=== PATIENT | male | born 1995 | race Caucasian/White ===

== ENCOUNTER 2020-04-06 16:39 | Outpatient (REF) | payer OTHER, SELFPAY | END 2020-04-06 16:40 | disposition home or self-care (01) | LOC: HO.LNP 16:39 | PROVIDERS: Visit Provider Physician Assistant | DX: Z20.822 Contact with and (suspected) exposure to COVID-19 (principal); J06.9 Acute upper respiratory infection, unspecified | CPT/HCPCS: 36415; U0003; U0005 ==

== ENCOUNTER 2020-05-25 09:35 | Outpatient (REF) | payer OTHER, SELFPAY ==
[2020-05-25 11:08] LABS: MANUAL DIFF FLAG NO
[2020-05-25 11:21] LABS: Basophils Absolute Auto 0.1 X10*3/uL (0.0-0.2); Basophils Percent Auto 0.6 % (0-2); Eosinophils Absolute Auto 0.1 X10*3/uL (0.0-0.4); Eosinophils Percent Auto 0.9 % (0-4); Hematocrit 49.8 % (42-52); Hemoglobin 17.1 g/dl (14.0-18.0); Imm Gran Abs Auto 0.04 X10*3/uL (0.00-0.03); Imm Gran Pct Auto 0.5 % (0.0-0.4); Lymphocytes Absolute Auto 2.2 X10*3/uL (1.2-4.9); Lymphocytes Percent Auto 27.3 % (20-40); Mean Corpuscular HGB Conc 34.3 g/dl (31.0-36.0); Mean Corpuscular Hemoglobin 29.8 pg (27.0-33.0); Mean Corpuscular Volume 86.8 fL (80-98); Mean Platelet Volume 9.9 fL (9.4-12.4); Monocytes Absolute Auto 0.8 X10*3/uL (0.1-1.2); Monocytes Percent Auto 10.4 % (2-11); Neutrophils Absolute Auto 4.8 X10*3/uL (2.0-8.3); Neutrophils Percent Auto 60.3 % (45-73); Platelet Count 332 X10*3/uL (160-400); Red Blood Count 5.74 X10*6/uL (4.60-5.80); Red Cell Distribution Width 12.3 % (11.0-16.0); White Blood Count 7.9 X10*3/uL (4.8-10.8)
[2020-05-25 11:52] LABS: Alanine Aminotransferase 20 U/L (0-40); Albumin Level 5.1 g/dL (3.5-5.0); Alkaline Phosphatase 57 U/L (39-117); Anion Gap 16 (12-20); Aspartate Amino Transferase 15 U/L (5-37); Blood Urea Nitrogen 10 mg/dL (9-16); Calcium 10.2 mg/dL (8.4-10.2); Carbon Dioxide 27 mmol/L (22-29); Chloride 103 mmol/L (96-108); Cholesterol 240 mg/dL; Estimated Glomerular Filt Rate > 60; Glucose Fasting 92 mg/dL (60-99); HDL Cholesterol 35 mg/dL; LDL Cholesterol Calculated 155 mg/dl; Potassium 4.2 mmol/L (3.3-5.1); Sodium 142 mmol/L (135-145); Total Protein 7.4 g/dL (6.5-8.0); Triglycerides 252 mg/dL
[2020-05-25 11:59] LABS: TSH reflex Free T4 1.76 uIU/mL (0.32-4.0)
== END 2020-05-25 09:36 | disposition home or self-care (01) ==
LOC: HO.HMGCLDS 09:35
PROVIDERS: PCP Nurse Practitioner Family; Visit Provider Nurse Practitioner Family
DX: I10 Essential (primary) hypertension (principal); R00.0 Tachycardia, unspecified
CPT/HCPCS: 36415; 80053; 80061; 84443; 85025

== ENCOUNTER → 2020-08-23 13:49 | Outpatient (BNVA) | payer OTHER, SELFPAY | PROVIDERS: PCP Nurse Practitioner Family; Referring Provider Nurse Practitioner Family; Visit Provider Internal Medicine | DX: R00.0 Tachycardia, unspecified (principal); R00.2 Palpitations; I10 Essential (primary) hypertension | CPT/HCPCS: 93005; 99202 ==

== ENCOUNTER → 2020-09-27 13:12 | Outpatient (REF) | payer OTHER, SELFPAY ==
--- NOTE | 2020-09-27 13:17 | CA_ITS ---
Transthoracic Echocardiogram Patient (Last, First, Middle): Wesley Rain L Gender: Male Date of : 1995 Age: 25 Procedure Date: 09/27/2020 Procedure Type: Transthoracic Echocardiogram Location: OP Height: 177.8 cm Weight: 81.65 kg BSA: 2.00 m2 Heart Rate: bpm BP: 112 / 80 mmHg Box Tender: Petra MD: Eugene Rosa MD Symptoms: R00.2 - Palpitations Study Quality: Good ECG Rhythm: Sinus tachycardia Conclusions: - The left ventricular systolic function is normal. The visually estimated ejection fraction is between 60-65%. - No obvious valvular pathology seen on this study. Findings Left Ventricle Normal left ventricular cavity size. There is normal left ventricular wall thickness. The left ventricular systolic function is normal. The visually estimated ejection fraction is between 60-65%. There is no evidence of regional wall motion abnormalities. Diastolic function is normal for age. Right Ventricle Normal right ventricular cavity size and systolic function. Atria Both atria are normal in size. Aortic Valve There is a normal trileaflet aortic valve. There is no aortic valve stenosis. There is no aortic valve regurgitation. Mitral Valve The mitral valve appears normal. There is trace mitral valve regurgitation. There is no mitral valve stenosis. Pulmonic Valve The pulmonic valve was not well visualized. There is trace pulmonic valve regurgitation. Tricuspid Valve Normal tricuspid valve structure. There is no tricuspid valve regurgitation. Tricuspid regurgitation envelope is inadequate for calculation of right ventricular systolic pressure. Great Vessels The aortic annulus, sinuses of valsalva, and asc aorta are normal in size. Venous The inferior vena cava is normal in size and collapses greater than 50% with inspiration. Pericardium/Pleural There is no evidence of pericardial effusion. Prior Study Comparison No prior study available for comparison. Recommendations, Care & Conclusions No obvious valvular pathology seen on this study. Measurements 2D Linear Measurements RVIDd: 2.31 RVIDd Index: 1.16 IVSd: 1.05 0.6-0.9/0.6-1.0 cm LVIDd: 4.09 3.9-5.3/4.2-5.9 cm LVIDd Index: 2.05 2.4-3.2/2.2-3.1 cm/m2 LVIDs: 3.01 2.0-3.6 cm LVPWd: 1.25 0.7-1.1 cm Ao Root: 2.80 2.1-3.5 cm LA Diam: 2.60 2.7-3.8/3.0-4.0 cm LAIDs Index: 1.30 1.5-2.3 cm/m2 LV Mass: 200.20 67-162/88-224 g LV Mass Index: 100.10 43-95/49-115 g/m2 LVOT Diam: 2.30 3.0+(-)1.3 cm 2D Systolic Function EF 4C: 61.10 >55% EF 2C: 63.40 >55% EF BiP: 62.70 >55% Mitral Valve E'Lateral: 18.00 E'Medial: 9.90 Aortic Valve AoV Pk Chacorta: 1.26 AoV Mn Chacorta: 0.87 AoV VTI: 0.21 AoV Pk Grad: 6.00 Aov Mn Grad: 3.00 AKASH Cont.VTI: 3.09 LVOT LVOT Pk Chacorta: 1.00 LVOT Mn Chacorta: 0.60 LVOT VTI: 0.16 LVOT Pk Grad: 4.00 LVOT Mn Grad: 2.00 LVOT Diam: 2.30 LVOT Area: 4.15 Diastolic Function E'Medial: 9.90 E' Laterial: 18.00 Tricuspid Valve RA Press: 3.00 Great Vessels Aorta Ao Root-2D: 2.80 2.0-3.7 cm Ao Asc: 2.80 2.1-3.4 cm Ao Arch: 2.50 Updated in Other Vendor System with Status of Final Eugene Rosa MD electronically signed on 09/29/2020 1:52:44 PM with status of Final
--- NOTE | 2020-09-27 13:17 | ECG_ITS ---
Hook-up date: 2020-09-27 14:07:00 Duration: 42:47:00 Test Indications: PALPITATIONS Medications: 665470 QRS complexes * Ventricular ectopics which represent % of total QRS comp. * Supraventricular ectopics which represent % of total QRS comp. * Paced QRS complexs which represent % of total QRS comp. VENTRICULAR ECTOPY * Isolated * Bigeminal Cycles * Couplets * Runs * Beats in Runs * Beats LONGEST at * BPM at :: -- * Beats FASTEST at * BPM at :: -- SUPRAVENTRICULAR ECTOPY * Isolated * Couplets * Runs * Beats in Runs * Beats LONGEST at * BPM at :: -- * Beats FASTEST at * BPM at :: -- HEART RATES 47 MIN at 05:21:54 2020-09-28 89 AVG 146 MAX at 14:33:30 2020-09-27 LONGEST RR 1.4880 secs at 02:13:34 2020-09-28 S-T LEVELS Channel 1 - 128 mm at 14:07:00 2020-09-27 - 128 mm at 14:07:00 2020-09-27 Channel 2 - 128 mm at 14:07:00 2020-09-27 - 128 mm at 14:07:00 2020-09-27 Channel 3 - 128 mm at 03:32:61 -- - 128 mm at 03:32:61 Underlying rhythm is sinus; Average ventricular rate 89/min; range 47-146/min; About 30% of the time, ventricular rate >100/min- sinus tachycardia; Otherwise, no significant arrhythmias; Patient did not report any symptoms in the diary Referred By: Candelaria Hernandez Overread By: CANDELARIA HERNANDEZ
== END ==
LOC: HO.CARD 13:12
PROVIDERS: PCP Nurse Practitioner Family; Visit Provider Internal Medicine
DX: R00.2 Palpitations (principal)
CPT/HCPCS: 93225; 93226; 93306

== ENCOUNTER → 2020-10-18 14:29 | Outpatient (BNVA) | payer OTHER, SELFPAY | PROVIDERS: PCP Nurse Practitioner Family; Referring Provider Nurse Practitioner Family; Visit Provider Internal Medicine | DX: R00.0 Tachycardia, unspecified (principal); R00.2 Palpitations; I10 Essential (primary) hypertension; R07.9 Chest pain, unspecified; Q54.9 Hypospadias, unspecified; Z79.899 Other long term (current) drug therapy | CPT/HCPCS: 93005; 99212 ==

== ENCOUNTER 2021-02-14 19:33 | Emergency (ER) | payer OTHER, SELFPAY ==
--- NOTE | ~2021-02-14 | XR_ITS ---
EXAMINATION: XR CHEST CLINICAL INFORMATION: Chest pain COMPARISON: None TECHNIQUE: Frontal view of the chest was obtained. FINDINGS: Cardiac silhouette is normal in size. Lungs are well aerated. There is no lobar consolidation. No pleural effusion or pneumothorax. No acute osseous abnormality. XR/XR chest 1V IMPRESSION: No acute pulmonary pathology.
[2021-02-14 19:49] VITALS: BP 153/109; PULSE 105; RESP 18; TEMP 37.2; O2SAT 98; BMI 25.8
[2021-02-14 21:41] LABS: MANUAL DIFF FLAG NO
[2021-02-14 21:42] LABS: Basophils Absolute Auto 0.1 X10*3/uL (0.0-0.2); Basophils Percent Auto 0.6 % (0-2); Eosinophils Absolute Auto 0.1 X10*3/uL (0.0-0.4); Eosinophils Percent Auto 1.1 % (0-4); Hematocrit 49.9 % (42.0-52.0); Hemoglobin 17.8 g/dl (14.0-18.0); Imm Gran Abs Auto 0.03 X10*3/uL (0.00-0.03); Imm Gran Pct Auto 0.3 % (0.0-0.4); Lymphocytes Absolute Auto 3.2 X10*3/uL (1.2-4.9); Lymphocytes Percent Auto 34.7 % (20-40); Mean Corpuscular HGB Conc 35.7 g/dl (31.0-36.0); Mean Corpuscular Volume 84.1 fL (80.0-98.0); Mean Platelet Volume 9.3 fL (9.4-12.4); Monocytes Absolute Auto 0.9 X10*3/uL (0.1-1.2); Monocytes Percent Auto 9.1 % (2-11); Neutrophils Absolute Auto 5.1 x10*3/uL (2.0-8.3); Neutrophils Percent Auto 54.2 % (45-73); Platelet Count 297 X10*3/uL (160-400); Red Blood Count 5.93 X10*6/uL (4.60-5.80); Red Cell Distribution Width 11.9 % (11.0-16.0); White Blood Count 9.4 X10*3/uL (4.8-10.8)
[2021-02-14 22:01] LABS: Troponin-I High Sensitivity < 3.5 ng/L (<3.5-35.0)
[2021-02-14 22:03] LABS: Anion Gap 13 (12-20); Blood Urea Nitrogen 11 mg/dL (9-16); Calcium 10.7 mg/dL (8.4-10.2); Carbon Dioxide 29 mmol/L (22-29); Chloride 103 mmol/L (96-108); Creatinine Clr Calc Pharmacy 103.1; Estimated Glomerular Filt Rate > 60; Glucose Random 86 mg/dL (60-115); Potassium 4.7 mmol/L (3.3-5.1); Sodium 140 mmol/L (135-145)
--- NOTE | 2021-02-15 07:50 | ECG_ITS ---
Test Reason : CHEST PAIN Blood Pressure : / mmHG Vent. Rate : 100 BPM Atrial Rate : 100 BPM P-R Int : 128 ms QRS Dur : 076 ms QT Int : 318 ms P-R-T Axes : 074 086 044 degrees QTc Int : 410 ms Normal sinus rhythm Nonspecific ST abnormality No previous ECGs available Referred By: Manuel Espinal Electronically Signed By:STEFANI LAYNE MD
== END 2021-02-15 00:35 | disposition left against medical advice (07) ==
PROVIDERS: Emergency Provider Emergency Medicine; PCP Nurse Practitioner Family
DX: R07.9 Chest pain, unspecified (principal)
CPT/HCPCS: 36415; 71045; 80048; 84484; 85025; 93005; 99282; 99283

== ENCOUNTER 2021-06-06 09:22 | Outpatient (REF) | payer OTHER, SELFPAY ==
--- NOTE | ~2021-06-06 | XR_ITS ---
EXAMINATION: XR LUMBOSACRAL SPINE CLINICAL INFORMATION: Radiculopathy. COMPARISON: None TECHNIQUE: Three views of the lumbosacral spine. FINDINGS: The vertebral bodies and posterior elements are normal. The disc spaces are preserved and the vertebral alignment is normal. The paraspinal soft tissues are normal. XR/XR lumbar spine 2-3V IMPRESSION: Unremarkable lumbar spine examination.
[2021-06-06 11:39] LABS: Appearance Urine CLEAR; Color Urine YELLOW; Glucose Urine UA NEG (NEG); Leukocyte Esterase Urine NEG (NEG); Nitrite Urine NEG (NEG); PH 7.5 (5.0-8.0); Urine Blood NEG (NEG); Urine Ketones NEG (NEG); Urine Protein NEG (NEG-TRACE)
[2021-06-06 12:05] LABS: Alanine Aminotransferase 16 U/L (0-40); Albumin Level 4.9 g/dL (3.5-5.0); Alkaline Phosphatase 56 U/L (39-117); Anion Gap 12 (12-20); Aspartate Amino Transferase 16 U/L (5-37); Bilirubin Total 0.7 mg/dL (0.0-1.0); Blood Urea Nitrogen 13 mg/dL (9-16); Calcium 10.2 mg/dL (8.4-10.2); Carbon Dioxide 27 mmol/L (22-29); Chloride 104 mmol/L (96-108); Cholesterol 228 mg/dL; Estimated Glomerular Filt Rate > 60; Glucose Fasting 95 mg/dL (60-99); HDL Cholesterol 37 mg/dL; LDL Cholesterol Calculated 160 mg/dl; Potassium 4.4 mmol/L (3.3-5.1); Sodium 139 mmol/L (135-145); Total Protein 7.2 g/dL (6.5-8.0); Triglycerides 159 mg/dL
[2021-06-06 12:17] LABS: TSH reflex Free T4 2.07 uIU/mL (0.32-4.0)
== END 2021-06-06 09:23 | disposition home or self-care (01) ==
LOC: HO.HMGCX 09:22
PROVIDERS: PCP Nurse Practitioner Family; Visit Provider Nurse Practitioner Family
DX: Z00.00 Encounter for general adult medical examination without abnormal findings (principal); M54.16 Radiculopathy, lumbar region
CPT/HCPCS: 36415; 72100; 80053; 80061; 81003; 84443

== ENCOUNTER 2021-09-11 17:00 | Outpatient (RCR) | payer OTHER, SELFPAY ==
--- NOTE | 2021-07-03 08:18 | MHC.PT.EP ---
[facility] [place] Office [place] Office [place] Office [address] Kenneth Mercedes [address] [phone] F: [phone] F: [phone] F: [phone] F: [phone] Physical Therapy Plan of Care Date of Evaluation: Date of Surgery: Diagnosis: This is a 26 yo male presenting to skilled PT with a script for lumbar radiculopathy Assessment: This is a 26 yo male presenting to skilled PT with a script for lumbar radiculopathy. Patient reports stepping off of a snow bank 2 years ago (stepped onto the LLE and felt a jolt). Since then he has had pain and re-aggravates it when bending or moving too fast. Pain is located R sided low back, it can radiate into the gastroc (central) and foot (plantar aspect). Pain is described as uncomfortable and numb in the leg. When the pain is really pain the L side has the same reaction. Pain increases with sitting in a recliner, bending and carrying. His pain comes and goes. He has gotten inserts for his shoes. Assessment reveals pain that ranges up to a 6/10. He demos decreased hip ROM, decreased core and back strength, gait pattern with increased IR at the hips, impaired joint mobility without pain throughout lumbar spine as well as gross functional decline with radiating symptoms during lifting, bending and flexion. He demos s/s consistent with ? posterior derangement and will trial extension based program, once centralize challenge dynamically. He is a good candidate for skilled PT 2x/wk for 5wks. Frequency and Duration: The patient will be seen 2x/wk for 5wks Short Term Goals: I in [facility] Centralize symptoms in 2 weeks Understand anatomy, pain patterns and progression [facility] Goals: Demos functional ROM and strength Improve oswestry by at least 10 points Improve pain at the worst to no more than 2/10 Demo proper lifting techniques without increase in pain or radiating symptoms Treatment Plan: Modalities to reduce pain, spasms and effusion. Manual therapy to restore motion and function. Therapeutic exercise to improve strength and flexibility. Neuromuscular re-education for posture and balance. Therapeutic activities to return to functional activities of daily living. Electronically signed by: Jossie Buenrostro PT Please sign and return to therapist. Thank you for your referral.
--- NOTE | 2021-09-12 07:47 | MHC.PT.DC ---
[facility] [place] Office [place] Office [place] Office [address] Kenneth Mercedes [address] [phone] F: [phone] F: [phone] F: [phone] F: [phone] Physical Therapy Discharge Report Diagnosis: This is a 26 yo male presenting to skilled PT with a script for lumbar radiculopathy Date of Surgery: Date of Evaluation: 07/02/21 Date of Discharge: 09/12/21 Treatments to Date: 12 Cancellations to Date: 0 No Shows to Date: 0 Discharge Status: Discharge Summary: Per last note, Pt I with HEP. Pt can reduce L/S sxs with Sol exs and understands anatomy/centralization vs peripheralization. Pt achieved most goals and is DC with HEP. Educated to call PCP for follow up as needed. Electronically signed by: Jossie Buenrostor PT Please sign and return to therapist. Thank you for your referral.
== END 2021-09-12 07:47 | disposition home or self-care (01) ==
LOC: HO.PTCHIC 17:00
PROVIDERS: PCP Nurse Practitioner Family; Visit Provider Nurse Practitioner Family
DX: M54.16 Radiculopathy, lumbar region (principal)
CPT/HCPCS: 97110; 97140; 97161; 97530

== ENCOUNTER 2021-11-01 07:58 | Outpatient (REF) | payer OTHER, SELFPAY ==
[2021-11-01 12:20] LABS: Cholesterol 206 mg/dL; HDL Cholesterol 36 mg/dL; LDL Cholesterol Calculated 140 mg/dl; Triglycerides 154 mg/dL
== END 2021-11-01 07:59 | disposition home or self-care (01) ==
LOC: HO.HMGCLDS 07:58
PROVIDERS: PCP Nurse Practitioner Family; Visit Provider Nurse Practitioner Family
DX: E78.5 Hyperlipidemia, unspecified (principal)
CPT/HCPCS: 36415; 80061

== ENCOUNTER 2023-04-30 16:24 | Outpatient (AMB) | payer OTHER, SELFPAY ==
[2023-04-30 16:35] VITALS: BP 132/80; PULSE 110; O2SAT 98; BMI 26.3
--- NOTE | 2023-04-30 16:35 | A.OFFPC_ITS ---
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 Will order labs. pt does report tachycardia, looking at his watch. 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 Will get a EKG today, denies any CP, palpitations, SOB, dizziness, blurred vision, but does have anxiety. He reports he wore a holter montior years ago, nothing acute/sustained reported [facility] Medical History Male hypospadias Surgical History Personal history of repaired hypospadias Family History Father No problems noted. 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 1. Little interest or pleasure in doing things: several days 2. Feeling down, depressed, or hopeless: several days 3. Trouble falling or staying asleep, or sleeping too much: several days 4. Feeling tired or having little energy: several days 5. Poor appetite or overeating: several days 6. Feeling bad about yourself - or that you are a failure or have let yourself or your family down: several days 7. Trouble concentrating on things, such as reading the newspaper or watching television: several days 8. Moving or speaking so slowly that other people could have noticed. Or the opposite - being so fidgety or restless that you have been moving around a lot more than usual: not at all 9. Thoughts that you would be better off or of hurting yourself in some way: several days Total score: 8 Depression Screening Interpretation: Positive Depression Screening Done: Yes [id number] - PHQ-9 Billing: Yes Source: Developed by Drs. Wesley Cedillo, Enid Barber, Tomy Young and colleagues, with an educational sammie from [employer]. Thrive Questionnaire Date Thrive assessed: 04/30/23 I am a: Patient What is your living situation today?: I have a steady place to live Within the past 12 months, did the food you bought not last and you didn't have the money to get more?: Never true Within the past 12 months, did you worry whether your food would run out before you got money to buy more?: Never true Do you have trouble paying for medicines?: No Do you have trouble getting transportation to medical appointments?: No Do you have trouble paying your heating and electricity bill?: No Do you have trouble taking care of your child, family member or friend?: No Do you have trouble with day-to-day activities such as bathing, preparing meals, shopping, managing finances, etc.?: No Are you currently unemployed and looking for a job?: No Are you interested in more education?: No Please select the resources that you would like help with: None Currently or been in a relationship where the following occur: no concerns reported THRIVE Score: 0 AUDIT C Alcohol Use Questionnaire (AUDIT-C) 1. How often do you have a drink containing alcohol?: 2-4 times a month 2. How many drinks containing alcohol do you have on a typical day when you are drinking?: 3 or 4 3. How often do you have six or more drinks on one occasion?: Never Total Score: 3 Score Reviewed/Action Taken: Yes TORI-7 AMB Questionnaire TORI-7 Date TORI - 7 assessed: 06/04/21 Source: Developed by Drs. Wesley Cedillo, Enid Barber, Tomy Young and colleagues, with an educational sammie from [employer]. Review of Systems Const Denies chills and Denies fever(s) Eyes Denies blurry vision ENT Denies vertigo, Denies dizziness and Denies sore throat Card Denies chest pain at rest, Denies chest pain with activity, Denies diaphoresis, Denies dyspnea and Denies dyspnea on exertion Resp Denies cough, Denies dyspnea, Denies dyspnea on exertion and Denies wheezing GI Denies abdominal pain, Denies melena, Denies hematochezia, Denies constipation, Denies diarrhea and Denies loose stools Denies hematuria Musc Denies numbness and Denies tingling Skin/Breast Denies lesions Neuro Denies vertigo, Denies dizziness, Denies numbness and Denies tingling Psych Denies anxiety, Denies depression, Denies homicidal ideation, Denies suicidal ideation and Denies other (substance abuse) Aller/Immun Denies wheezing Physical exam (Primary Care) Vital Signs: Last Vital Signs Pulse 110 H 04/30/23 16:35 BP 132/80 04/30/23 16:35 Pulse Ox 98 04/30/23 16:35 Oxygen Delivery Method Room Air 04/30/23 16:35 BMI result Body Mass Index 26.3 Tobacco/Smoking Status: Tobacco use Status Tobacco use date assessed 04/30/23 04/30/23 16:39 Patient Tobacco Use Status Never used Tobacco 04/30/23 16:39 e-Cigarette/Vaping Use Never Used 04/30/23 16:39 PHQ-9: PHQ-9 Score PHQ-9: Total score 8 04/30/23 16:57 Depression Screening Interpretation: Positive Thrive Assessment: Date of Thrive Assessment Date Thrive assessed 04/30/23 04/30/23 16:39 Currently or been in a relationship where the following occur: no concerns reported Const General: cooperative Nutritional Appearance: well nourished Orientation/consciousness: patient oriented x3 HENMT Head: Yes normal to inspection, Yes normocephalic and Yes atraumatic Ears: TM's normal bilaterally Eyes General: appearance normal, both eyes and all related structures Alignment and Position: alignment normal and position normal Neck Neck: Yes normal visual inspection and Yes no lymphadenopathy Thyroid: Thyroid normal Resp Effort & Inspection: normal respiratory effort Auscultation: clear to auscultation bilaterally Cardio Rate: regular rate Rhythm: regular rhythm Heart sounds: S1 normal heart sound present, S2 normal heart sound present and no murmurs GI Palpation (GI): Soft to palpation and nontender Auscultation: normal bowel sounds Male General Exam: Yes normal external exam Penis: normal penis Scrotum: scrotum normal, testes descended bilaterally and no inguinal hernias Testes: no testicular mass Skin Rashes: no rashes Neuro General: patient oriented x3, moves all extremities, no focal motor deficits and deep tendon reflexes 2+ bilaterally Romberg Test: Negative Psych Appearance: grossly normal Mental Status: mental status grossly normal Speech and movement: Normal speech and movement present Affect: normal affect Attitude: cooperative Thought process: Normal thought process present Thought content: Normal thought content present Insight: Good insight present (Psych) Judgement: Good judgement present (Psych) Assessment and Plan Assessment & Plan (1) Physical exam: Code(s): Z00.00 - Encounter for general adult medical examination without abnormal findings Plan: labs ordered (2) Sinus tachycardia: Code(s): R00.0 - Tachycardia, unspecified Plan: Hx of sinus tachy, EKG done today, pt will contact me with changing conditions/symptoms Orders: Orders TSH reflex Free T4 Today Z00.00 - Encounter for general adult medical examination without abnormal findings Lipid Panel Today Z00.00 - Encounter for general adult medical examination without abnormal findings AMB EKG-In Office Today R00.0 - Tachycardia, unspecified Complete Blood Count Auto Diff Today Z00.00 - Encounter for general adult medical examination without abnormal findings Comprehensive [place]. Panel Fast Today Z00.00 - Encounter for general adult medical examination without abnormal findings UA CC w/rflx Micro + Cult Today Z00.00 - Encounter for general adult medical examination without abnormal findings Coding Level of Care Code Est Pt Prev Care 18-39y(12674) Diagnoses Physical exam Z00.00 Sinus tachycardia R00.0
== END 2023-04-30 17:13 | disposition home or self-care (01) ==
PROVIDERS: PCP Nurse Practitioner Family; Visit Provider Nurse Practitioner Family
DX: Z00.00 Encounter for general adult medical examination without abnormal findings (principal); R00.0 Tachycardia, unspecified
CPT/HCPCS: 93000; 99395

== ENCOUNTER 2023-10-25 06:43 | Outpatient (REF) | payer OTHER, SELFPAY ==
[2023-10-25 11:13] LABS: MANUAL DIFF FLAG NO
[2023-10-25 11:15] LABS: Basophils Absolute Auto 0.1 X10*3/uL (0.0-0.2); Eosinophils Absolute Auto 0.2 X10*3/uL (0.0-0.4); Eosinophils Percent Auto 3.2 % (0-4); Hematocrit 47.5 % (42.0-52.0); Hemoglobin 16.3 g/dl (14.0-18.0); Imm Gran Abs Auto 0.03 X10*3/uL (0.00-0.03); Imm Gran Pct Auto 0.5 % (0.0-0.4); Lymphocytes Absolute Auto 2.1 X10*3/uL (1.2-4.9); Lymphocytes Percent Auto 33.5 % (20-40); Mean Corpuscular HGB Conc 34.3 g/dl (31.0-36.0); Mean Corpuscular Hemoglobin 29.9 pg (27.0-33.0); Mean Platelet Volume 10.3 fL (9.4-12.4); Monocytes Absolute Auto 0.8 X10*3/uL (0.1-1.2); Monocytes Percent Auto 12.9 % (2-11); Neutrophils Absolute Auto 3.1 x10*3/uL (2.0-8.3); Neutrophils Percent Auto 48.9 % (45-73); Platelet Count 276 X10*3/uL (160-400); Red Blood Count 5.46 X10*6/uL (4.60-5.80); Red Cell Distribution Width 12.4 % (11.0-16.0); White Blood Count 6.3 X10*3/uL (4.8-10.8)
[2023-10-25 11:27] LABS: Appearance Urine Clear; Color Urine Yellow; Glucose Urine UA Negative (Negative); Leukocyte Esterase Urine Negative (Negative); Nitrite Urine Negative (Negative); Specific Gravity - Urine 1.015 (1.005-1.025); Urine Blood Negative (Negative); Urine Ketones Negative (Negative); Urine Protein Negative (Neg-Trace)
[2023-10-25 11:52] LABS: Alanine Aminotransferase 21 U/L (0-40); Albumin Level 4.7 g/dL (3.5-5.0); Alkaline Phosphatase 63 U/L (39-117); Anion Gap 11 (12-20); Aspartate Amino Transferase 21 U/L (5-37); Bilirubin Total 0.5 mg/dL (0.0-1.0); Blood Urea Nitrogen 12 mg/dL (9-16); Calcium 9.9 mg/dL (8.4-10.2); Carbon Dioxide 26 mmol/L (22-29); Chloride 107 mmol/L (96-108); Cholesterol 259 mg/dL (<200); Estimated Glomerular Filt Rate > 60; Glucose Fasting 97 mg/dL (60-99); HDL Cholesterol 41 mg/dL (>40); LDL Cholesterol Calculated 157 mg/dL (<100); Potassium 4.1 mmol/L (3.3-5.1); Sodium 140 mmol/L (135-145); Total Protein 7.2 g/dL (6.5-8.0); Triglycerides 308 mg/dL (<150)
== END 2023-10-25 06:44 | disposition home or self-care (01) ==
LOC: HO.HMGCLDS 06:43
PROVIDERS: PCP Nurse Practitioner Family; Visit Provider Nurse Practitioner Family
DX: Z00.00 Encounter for general adult medical examination without abnormal findings (principal)
CPT/HCPCS: 36415; 80053; 80061; 81003; 84443; 85025

== ENCOUNTER 2023-10-29 07:39 | Outpatient (AMB) | payer OTHER, SELFPAY ==
--- NOTE | 2023-10-29 07:09 | A.OFFPC_ITS ---
Intake Visit Reasons: lab review Allergies No Known Allergies Allergy (Verified 10/29/23 07:17) Medication List - Last Reconciled 10/29/23 by RAFAL Parrish bupropion HCl XL (Wellbutrin XL) 150 mg PO QAM buspirone 7.5 mg PO BID omeprazole 40 mg PO DAILY 90 days Tobacco use date assessed: 04/30/23 Dental Screening Dental Screen Date: 04/30/23 HPI lab review HPI Details Pt c/o increased depression. He has not tried a medication for this. Pt is interested in trying a medication. Will start wellbutrin 150mg. He is taking buspirone which helps with his anxiety. Pt is also interested in seeing a therapist, will have team reach out to pt. Denies any SI and HI. Dyslipidemia: Pt's last lipids were elevated. Will repeat labs in 2 months after trying a better diet. [facility] Medical History Male hypospadias Surgical History Personal history of repaired hypospadias Family History Father No problems noted. 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 Wesley Cedillo, Enid Barber, Tomy Young and colleagues, with an educational sammie from [employer] Review of Systems Const Reports as per HPI Physical exam (Primary Care) Tobacco/Smoking Status: Tobacco use Status Tobacco use date assessed 04/30/23 04/30/23 16:39 Patient Tobacco Use Status Never used Tobacco 04/30/23 16:39 e-Cigarette/Vaping Use Never Used 04/30/23 16:39 Thrive Assessment: Date of Thrive Assessment Date Thrive assessed 04/30/23 04/30/23 16:39 Const General: cooperative Orientation/consciousness: patient oriented x3 Neuro General: patient oriented x3 Psych Appearance: grossly normal Mental Status: mental status grossly normal Speech and movement: Clear speech present Affect: normal affect Attitude: cooperative Thought process: Normal thought process present Thought content: Normal thought content present Insight: Good insight present (Psych) Judgement: Good judgement present (Psych) Telehealth Telehealth Telehealth Platform: [employer] Location of provider rendering services: practice address Location of patient: address on file Patient Identification confirmed using: Name, : Yes Telehealth method: video Patient verbally consented to treatment: Yes Patient verbally consented to billing insurance company: Yes Patient informed of any privacy concerns related to visit: Yes Minutes spent on Phone/Video with Pt.: 10 Assessment and Plan Assessment & Plan (1) Dyslipidemia: Code(s): E78.5 - Hyperlipidemia, unspecified Plan: Repeat labs ordered (2) Anxiety: Code(s): F41.9 - Anxiety disorder, unspecified Plan: Continue buspirone (3) Depression: Code(s): F32.A - Depression, unspecified Plan: Starting wellbutrin Plan The patient agreed to the use of a emergency medical service manager for this encounter. Scribed for RAFAL Sam by Luzma Drew emergency medical service manager, on 10/29/2023 at 07:10 EST. Orders: Orders Lipid Panel 2 Months E78.5 - Hyperlipidemia, unspecified Comprehensive [place]. Panel Fast 2 Months E78.5 - Hyperlipidemia, unspecified Medications: New bupropion HCl XL (Wellbutrin XL) 150 mg PO QAM 90 tabs 0RF Coding Level of Care Code Tele Est Pt Level 3 (30269) Diagnoses Dyslipidemia E78.5 Anxiety F41.9 Depression F32.A
== END 2023-10-29 09:59 | disposition home or self-care (01) ==
LOC: HO.HMGC 07:39
PROVIDERS: PCP Nurse Practitioner Family; Visit Provider Nurse Practitioner Family
DX: E78.5 Hyperlipidemia, unspecified (principal); F41.9 Anxiety disorder, unspecified; F32.A Depression, unspecified
CPT/HCPCS: 99213

== ENCOUNTER 2024-01-28 08:20 | Outpatient (AMB) | payer OTHER, SELFPAY ==
--- NOTE | 2024-01-28 07:23 | A.OFFVIS_ITS ---
Intake Visit Reasons: 3m follow up Allergies No Known Allergies Allergy (Verified 01/28/24 07:23) [facility] HPI 3m follow up: Details: History of Present Illness The patient is a 28-year-old male presenting with concerns regarding the ma nagement of his depression and anxiety. The patient is currently prescribed Wellbutrin (bupropion) 150 mg XL daily for depression and buspirone 7.5 mg twice daily for anxiety. Although he reports improvement in anxiety symptoms with buspirone, he has observed minimal change in his depressive symptoms under the current dosage of bupropion. The patient denies any suicidal ideation, homicidal ideation, chest pain, calmness, shortness of breath, fever, or chills. He is actively seeking a therapist with whom he has previously established care to help manage his condition further. Review of Systems - Psychiatric: Denies suicidal ideation. Physical Exam General: No apparent distress, well nourished Head: Normocephalic Eyes: non-icteric, pupils appear grossly symmetric Mouth: moist mucous membranes, airway patent Neck: Trachea midline Lungs: no respiratory distress, speaks in full sentences Neurologic: alert and cooperative, no dysarthria, face appears symmetric Psychiatric: affect normal, thought pattern linear Skin: no facial diaphoresis, no gross jaundice, no visible rash on exposed skin Note: This physical exam was conducted in conjunction with the patient via our Telehealth platform. Plan 1. 5 mg twice daily as it effectively manages anxiety symptoms: - A follow-up appointment is scheduled in a few months to assess the effectiveness of the medication adjustment. - Encourage the patient to maintain engagement in therapy sessions for additional support in managing depression and anxiety. Patient was informed and verbally consented to the use of an ambient scribe for clinic note documentation during this visit. Discussion Notes I discussed with the patient the management and treatment options for his depressive and anxiety symptoms. After evaluating the reported effectiveness of his current medications, we agreed to increase the bupropion dosage to potentially enhance its benefits for depression. I explained the risks and benefits associated with this medication adjustment and affirmed the continued use of buspirone given its positive effect on anxiety. The patient is advised to continue seeking therapeutic support, which is crucial in comprehensively manag ing his conditions. He is informed about contacting a therapist he is already familiar with to facilitate this process. The patient agrees with the management plan and understands the rationale and expectations concerning his treatment. Patient Instructions - Increase bupropion to 300 mg XL daily. - Continue buspirone at 7.5 mg twice daily. - Follow up in a few months to assess medication efficacy. - Contact and engage with a therapist for ongoing support. [facility] Medical History Male hypospadias Surgical History Personal history of repaired hypospadias Family History Father No problems noted. 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 Current occupational exposures/hazards: Yes Cognitive needs: No Hearing needs: No Vision needs: Yes Telehealth Telehealth Telehealth Platform: [employer] Location of provider rendering services: practice address Location of patient: address on file Patient Identification confirmed using: Name, : Yes Telehealth method: video Patient verbally consented to treatment: Yes Patient verbally consented to billing insurance company: Yes Patient informed of any privacy concerns related to visit: Yes Minutes spent on Phone/Video with Pt.: 5 Assessment & Plan Assessment & Plan (1) Depression: Code(s): F32.A - Depression, unspecified Category: Medical (2) Anxiety: Code(s): F41.9 - Anxiety disorder, unspecified Category: Medical Plan . Medications: Changed From bupropion HCl XL (Wellbutrin XL) 150 mg PO QAM 90 tabs 0RF To bupropion HCl XL 300 mg PO QAM 90 tabs 0RF Coding Level of Care Code Tele Est Pt Level 3 (04456) Diagnoses Depression F32.A Anxiety F41.9
== END 2024-01-28 08:21 | disposition home or self-care (01) ==
LOC: HO.HMCC 08:20
PROVIDERS: PCP Nurse Practitioner Family; Visit Provider Nurse Practitioner Family
DX: F32.A Depression, unspecified (principal); F41.9 Anxiety disorder, unspecified

== ENCOUNTER → 2024-01-28 08:20 | Outpatient (BNVA) | payer OTHER, SELFPAY | PROVIDERS: PCP Nurse Practitioner Family; Visit Provider Nurse Practitioner Family | DX: F32.A Depression, unspecified (principal); F41.9 Anxiety disorder, unspecified ==

== ENCOUNTER 2024-05-22 09:17 | Outpatient (REF) | payer OTHER, SELFPAY ==
[2024-05-22 12:37] LABS: Alanine Aminotransferase 25 U/L (0-40); Albumin Level 4.8 g/dL (3.5-5.0); Alkaline Phosphatase 54 U/L (39-117); Anion Gap 11 (12-20); Aspartate Amino Transferase 20 U/L (5-37); Blood Urea Nitrogen 11 mg/dL (9-16); Calcium 9.7 mg/dL (8.4-10.2); Carbon Dioxide 25 mmol/L (22-29); Chloride 107 mmol/L (96-108); Cholesterol 209 mg/dL (<200); Estimated Glomerular Filt Rate > 60; Glucose Fasting 93 mg/dL (60-99); HDL Cholesterol 46 mg/dL (>40); LDL Cholesterol Calculated 139 mg/dL (<100); Potassium 4.2 mmol/L (3.3-5.1); Sodium 139 mmol/L (135-145); Total Protein 7.5 g/dL (6.5-8.0); Triglycerides 120 mg/dL (<150)
== END 2024-05-22 09:18 | disposition home or self-care (01) ==
LOC: HO.HMGCLDS 09:17
PROVIDERS: PCP Nurse Practitioner Family; Visit Provider Nurse Practitioner Family
DX: E78.5 Hyperlipidemia, unspecified (principal)
CPT/HCPCS: 36415; 80053; 80061

== ENCOUNTER 2024-05-26 13:43 | Outpatient (AMB) | payer OTHER, SELFPAY ==
[2024-05-26 13:50] VITALS: BP 118/70; PULSE 102; O2SAT 99; BMI 24.4
--- NOTE | 2024-05-26 13:50 | A.OFFPC_ITS ---
Vital Signs 05/26/24 13:50 Height 5 ft 10 in Weight 170 lb BMI 24.4 BP 118/70 Blood Pressure Location Lt brachial Position Sitting Pulse 102 H Pulse Source Pulse Oximeter Pulse Oximetry (%) 99 Oxygen Delivery Method Room Air Intake Visit Reasons: ANNUAL PE w/ labs State Pilot Required: No Accompanied by: Self / Same As Patient Allergies No Known Allergies Allergy (Verified 05/26/24 13:51) Medication List - Last Reconciled 05/26/24 by KATHRYN Parrish- bupropion HCl XL 300 mg PO QAM buspirone 7.5 mg PO BID omeprazole 40 mg PO DAILY 90 days Tobacco use date assessed: 05/26/24 Dental Screening Dental Screen Date: 05/26/24 Did you have a dental visit in the last 12 months?: Yes Did you have a dental problem in the last 6 months where you did not have access to dental care?: No Was dental information given to patient?: Patient has dentist HPI ANNUAL PE w/ labs HPI Details Chief Complaint Patient is here for a routine physical examination. History of Present Illness The patient is a 29-year-old male presenting for a routine physical examination. During the visit, discussions revealed ongoing management of Generalized Anxiety Disorder and Major Depressive Disorder, conditions for which he is currently engaged in therapy and medication. Progress in these areas was positively acknowledged by the patient, noting that his mental well-being has improved with consistent therapeutic sessions. Additionally, a history of Hyperlipidemia was confirmed. Regular laboratory tests had been conducted, and recent results showed improvement in cholesterol levels, suggestive of effective management through current treatment plans. Social History - Undergoing therapy for anxiety and dep ression - Consistent with medication regimen for mental health Health Maintenance - Continue monitoring cholesterol levels regularly - Maintain current treatment for mental health disorders Review of Systems - Psychiatric: Reports anxiety and depre ssion but notes significant improvement with therapy. Denies suicidal or homicidal ideation. - Gastrointestinal: Denies abdominal beth n, blood in stool, constipation, diarrhea. denies any cp, sob, n/v, SI or HI. does have anxiety and depression, though getting better Physical Exam General: Cooperative, healthy appearing, comfortable, no acute distress and well developed Orientation: Patient oriented x3 Limitations: No limitations Head: Normal to inspection Ears: Hearing grossly normal bilaterally Nose: Normal external nose present Face and sinus: Normal facial exam Eyes: Appearance normal, both eyes and all related structures Neck: Normal visual inspection and Yes full ROM Respiratory: Normal respiratory effort and able to speak in complete sentences. Clear to auscultation bilaterally Cardiovascular: Regular rate and rhythm. Normal S1 and S2 GI: Normal to inspection. Soft to palpation and nontender Skin: No rashes or lesions noted Neuro: Patient oriented x3 Extremities: Normal to inspection Results - Labs: Recent monitoring indicates impr ovement in cholesterol levels. Plan I will continue to manage the patient's Generalized Anxiety Disorder and Major Depressive Disorder by maintaining his current therapy and medication regimen, as it appears to be effectively improving his symptoms. Additionally, regular monitoring of his cholesterol levels will continue, given the recent positive changes, to ensure his Hyperlipidemia remains controlled. Further laboratory evaluations will be conducted within the next few months. Discussion Notes During the consultation, I reviewed with the patient the improvements noted in his mental health conditions as a result of ongoing therapy and medication. We discussed the importance of continuing this treatment approach and outlined the benefits and lack of adverse effects currently observed. The patient was reassured that his improvement in cholesterol levels is indicative of effective current treatment for Hyperlipidemia, and we plan to monitor this in the coming months. Follow-up plans include additional laboratory tests to ensure therapeutic goals are met, with an understanding of possible treatment mo difications based on future results. Patient Instructions - Continue current medications and atten d regular therapy sessions. - Monitor your cholesterol levels and ge t lab tests as planned in the next few months. - Report any new symptoms or changes in your health promptly. [facility] Medical History Male hypospadias Surgical History Personal history of repaired hypospadias Family History Father No problems noted. 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 1. Little interest or pleasure in doing things: more than half the days 2. Feeling down, depressed, or hopeless: more than half the days 3. Trouble falling or staying asleep, or sleeping too much: nearly every day 4. Feeling tired or having little energy: more than half the days 5. Poor appetite or overeating: more than half the days 6. Feeling bad about yourself - or that you are a failure or have let yourself or your family down: several days 7. Trouble concentrating on things, such as reading the newspaper or watching television: several days 8. Moving or speaking so slowly that other people could have noticed. Or the opposite - being so fidgety or restless that you have been moving around a lot more than usual: not at all 9. Thoughts that you would be better off or of hurting yourself in some way: not at all Total score: 13 Depression Screening Interpretation: Positive (has a therapist, denies any si or HI, doing well with current therapist) Depression Screening Follow-up: Existing condition and In treatment Depression Screening Done: Yes 27963 - PHQ-9 Billing: Yes Source: Developed by Drs. Wesley Cedillo, Enid Barber, Tomy Young and colleagues, with an educational sammie from [employer]. Thrive Questionnaire Date Thrive assessed: 05/26/24 I am a: Patient What is your living situation today?: I have a steady place to live Within the past 12 months, did the food you bought not last and you didn't have the money to get more?: I choose not to answer this question Within the past 12 months, did you worry whether your food would run out before you got money to buy more?: I choose not to answer this question Do you have trouble paying for medicines?: I choose not to answer this question Do you have trouble getting transportation to medical appointments?: I choose not to answer this question Do you have trouble paying your heating and electricity bill?: I choose not to answer this question Do you have trouble taking care of your child, family member or friend?: I choose not to answer this question Do you have trouble with day-to-day activities such as bathing, preparing meals, shopping, managing finances, etc.?: I choose not to answer this question Are you currently unemployed and looking for a job?: I choose not to answer this question Are you interested in more education?: I choose not to answer this question Please select the resources that you would like help with: None Currently or been in a relationship where the following occur: I choose not to answer THRIVE Score: 0 AUDIT C Alcohol Use Questionnaire (AUDIT-C) 1. How often do you have a drink containing alcohol?: 2-4 times a month 2. How many drinks containing alcohol do you have on a typical day when you are drinking?: 3 or 4 3. How often do you have six or more drinks on one occasion?: Never Total Score: 3 Score Reviewed/Action Taken: Yes TORI-7 AMB Questionnaire TORI-7 Date TORI - 7 assessed: 05/26/24 Feeling nervous, anxious, or on edge: 2 = More than half the days Not being able to stop or control worryin = Not at all Worrying too much about different things: 1 = Several days Trouble relaxin = Not at all Being so restless that it is hard to sit still: 0 = Not at all Becoming easily annoyed or irritable: 2 = More than half the days Feeling afraid as if something awful might happen: 0 = Not at all Total TORI-7 score (0-4 normal; 5-9 mild; 10-14 moderate; 15-21 severe): 5 Source: Developed by Drs. Wesley Cedillo, Enid Barber, Tomy Young and colleagues, with an educational sammie from [employer]. TORI-7 Assessment Billing TORI-7 Assessment Tool: TORI-7 Assessment 06520 Physical exam (Primary Care) Vital Signs: Last Vital Signs Pulse 102 H 05/26/24 13:50 BP 118/70 05/26/24 13:50 Pulse Ox 99 05/26/24 13:50 Oxygen Delivery Method Room Air 05/26/24 13:50 BMI result Body Mass Index 24.4 Tobacco/Smoking Status: Tobacco use Status Tobacco use date assessed 05/26/24 05/26/24 13:57 Patient Tobacco Use Status Never used Tobacco 05/26/24 13:57 e-Cigarette/Vaping Use Never Used 05/26/24 13:57 PHQ-9: PHQ-9 Score PHQ-9: Total score 13 05/26/24 13:57 Depression Screening Interpretation: Positive (has a therapist, denies any si or HI, doing well with current therapist) Depression Screening Follow-up: Existing condition and In treatment Thrive Assessment: Date of Thrive Assessment Date Thrive assessed 05/26/24 05/26/24 13:57 Currently or been in a relationship where the following occur: I choose not to answer Coding Level of Care Code Est Pt Prev Care 18-39y(82810) Diagnoses Physical exam Z00.00 Dyslipidemia E78.5 Anxiety F41.9 Depression F32.A Additional Codes TORI-7 Assessment Billing - TORI-7 Assessment Tool: TORI-7 Assessment 78912 ([id number]) PHQ-9 - 06107 - PHQ-9 Billing: Yes ([id number]) Assessment & Plan Assessment & Plan (1) Physical exam: Code(s): Z00.00 - Encounter for general adult medical examination without abnormal findings Category: Medical (2) Dyslipidemia: Code(s): E78.5 - Hyperlipidemia, unspecified Category: Medical (3) Anxiety: Code(s): F41.9 - Anxiety disorder, unspecified Category: Medical (4) Depression: Code(s): F32.A - Depression, unspecified Category: Medical Plan . Orders: Orders Comprehensive Commerce. Panel Fast Today Z00.00 - Encounter for general adult medical examination without abnormal findings Complete Blood Count Auto Diff Today Z00.00 - Encounter for general adult me dical examination without abnormal findings TSH reflex Free T4 Today Z00.00 - Encounter for general adult medical examination without abnormal findings UA CC w/rflx Micro + Cult Today Z00.00 - Encounter for general adult medical examination without abnormal findings Lipid Panel Today Z00.00 - Encounter for general adult medical examination without abnormal findings
--- OUTSIDE RECORDS SUMMARY | 2024-05-26 16:26 | XMS_ITS | Clinical Summary ---
Author Organization [facility] Address [address] [place] [id number] Phone Care Team Providers Care Make Up Operator Name Role Phone Unavailable Primary Care Provider Unavailabl e Immunizations Immunization Administration Dates Next Due DTaP 5 05/04/2001, 8,1996,06/28,1996 H1N1 12/19/2008 HPV, Quadrivalent 08/24/2012,04/22/2012,02/19/20 12 Hep A, ped/adol 02/25/2013,09/26/2010 Hep B, ped/adol 1996,1996,1996 Hib (PRP-T) 07/08/1997, 7,1996,04/30 IPV 05/04/2001 Influenza Split 01/27/2013,02/19/2012,04/18/2010 Influenza, injectable, quadr ivalent, preservative free 12/12/2013 Influenza, injectable, trivalent 12/19/2008 MMR 05/06/2000,03/15/1997 Meningococcal Conj (Menactra) MCV4P 04/21/2014,0 08/02/2008 OPV 1996,1996,1996 Tdap 08/02/2008 Varicella 08/02/2008,05/18/1999 Family History Relation Name Status Comments Half-Brother Half brother (M ): Healthy Half-Sister Half sister (M) : Healthy Mother Mother: Heart d isease, Elevated cholesterol Other No family histo ry of Asthma, Family history of Diabetes mellitus, Family history of *Dental caries, Family history of Hyperlipidemia, Family history of Obesity Social History Tobacco Use Types Packs/Day Years Used Date Smoking Tobacco: Never Comments:Never smoker Sex and Gender Information Value Date Recorded Sex Assigned at Not on file Legal Sex Male 4:56 PM EDT Gender Identity Not on file Sexual Orientation Not on file Last Filed Vital Signs Vital Sign Reading Time Taken Comments Blood Pressure 120/86 06/23/2016 12:00 AM EDT Pulse 96 07/08/2015 12:00 AM EDT Temperature 36.6 ??C (97.8 ??F) 06/23/2016 12:00 AM E DT Respiratory Rate - - Oxygen Saturation - - Inhaled Oxygen Concentration - - Weight 76.2 kg (168 lb) 06/23/2016 12:00 AM EDT Height 175.9 cm (5' 9.25 ) 05/26/2015 12:00 AM E DT Body Mass Index 24.63 05/26/2015 12:00 AM EDT Plan of Treatment Health Maintenance Due Date Last Done Comments DTaP,Tdap,and Td Vaccines (7 - Td or Tdap) 08/02/2018 08/02/2008, 05/04/2001, 10/31/1997, Additional history exists Influenza Vaccines (#1) 2023 12/13/19 14, 01/27/2013, 02/19/2012, Additional history exists COVID-19 Vaccine ( season) 2023 Hepatitis B Vaccines Completed 1996, 1996, 1996 HIB Vaccines Completed 07/08/1997, 08/31, 1996, Additional history exists MMR Vaccines Completed 05/06/2000, 03/15/1997 IPV Vaccines Completed 05/04/2001, 08/31, 1996, Additional history exists Varicella Vaccines Completed 08/02/2008, 05/18/1999 HPV Vaccines Completed 08/24/2012, 04/04, 02/19/2012 Hepatitis A Vaccines Completed 02/25/2013, 09/27/19 11 Meningococcal Vaccine Completed 04/21/2014, 009 Men B Vaccine Aged Out No longer elig ible based on patient's age to complete this topic Pneumococcal Vaccine Aged Out No long er eligible based on patient's age to complete this topic
--- OUTSIDE RECORDS SUMMARY | 2024-05-26 16:26 | XMS_ITS | Encounter Summary ---
Author Organization [facility] Address [address] [place] [phone] Phone Care Team Providers Care Music Therapy Teacher Name Role Phone Unavailable Primary Care Provider Unavailabl e Encounter Details Date Type Department Care Team (Late st Contact Info) Description 10/17/2016 Conversion Encounter [facility] - [address] [address] Social History Tobacco Use Types Packs/Day Years Used Date Smoking Tobacco: Never Comments:Never smoker Sex and Gender Information Value Date Recorded Sex Assigned at Not on file Legal Sex Male 4:56 PM EDT Gender Identity Not on file Sexual Orientation Not on file documented as of this encounter Plan of Treatment Not on file documented as of this encounter Visit Diagnoses Not on filedocumented in this encounter
--- OUTSIDE RECORDS SUMMARY | 2024-05-26 16:26 | XMS_ITS | Encounter Summary ---
Author Organization [facility] Address [address] [place] [phone] Phone Care Team Providers Care Clinical Professor Name Role Phone Unavailable Primary Care Provider Unavailabl e Encounter Details Date Type Department Care Team (Late st Contact Info) Description 04/26/2013 Documentation [facility] Family Medicine [address] [place] [address] Family Medicine, Physician [facility] [place] [address] Social History Tobacco Use Types Packs/Day Years Used Date Smoking Tobacco: Never Assessed Sex and Gender Information Value Date Recorded Sex Assigned at Not on file Legal Sex Male 4:56 PM EDT Gender Identity Not on file Sexual Orientation Not on file documented as of this encounter Plan of Treatment Not on file documented as of this encounter Visit Diagnoses Not on filedocumented in this encounter
--- OUTSIDE RECORDS SUMMARY | 2024-05-26 16:26 | XMS_ITS | Encounter Summary ---
Author Organization [facility] Address [address] [place] [phone] Phone Care Team Providers Care Copy Preparer Name Role Phone Unavailable Primary Care Provider Unavailabl e Encounter Details Date Type Department Care Team (Late st Contact Info) Description 05/06/2011 Documentation [facility] [place] Family Medicine [address] [place] [address] Family Medicine, Physician [facility] [place] [address] Social History Tobacco Use Types [...]
== END 2024-05-26 14:25 | disposition home or self-care (01) ==
LOC: HO.HMCC 13:44
PROVIDERS: PCP Nurse Practitioner Family; Visit Provider Nurse Practitioner Family
DX: Z00.00 Encounter for general adult medical examination without abnormal findings (principal); E78.5 Hyperlipidemia, unspecified; F41.9 Anxiety disorder, unspecified; F32.A Depression, unspecified

== ENCOUNTER → 2024-05-26 13:43 | Outpatient (BNVA) | payer OTHER, SELFPAY | PROVIDERS: PCP Nurse Practitioner Family; Visit Provider Nurse Practitioner Family | DX: Z00.00 Encounter for general adult medical examination without abnormal findings (principal); E78.5 Hyperlipidemia, unspecified; F41.9 Anxiety disorder, unspecified; F32.A Depression, unspecified | CPT/HCPCS: 96127; 99395 ==